=== PATIENT | male | born 1955 | race Caucasian/White ===

== ENCOUNTER 2022-04-19 13:02 | Emergency (ER) | payer BC, OTHER ==
[~2022-04-19] VITALS: Ht 182.9 cm; Wt 106.6 kg
[~2022-04-19 13:02] MED LIST: LISI20TA30 PO; LOVA20TA2 PO
[2022-04-19 13:05] VITALS: BP_SYST 104
[2022-04-19] MEDS ORDERED: EPINEPHRINE HCL/PF 1 MG/ML AMP IM ONE (13:30)
[2022-04-19] MEDS ORDERED: FAMOTIDINE 20 MG TABLET PO ONE (13:30)
[2022-04-19] MEDS ORDERED: predniSONE 20 MG TABLET PO ONE (13:30)
[2022-04-19] MEDS ORDERED: FAMOTIDINE 20 MG TABLET ONE (13:50)
[2022-04-19] MEDS ORDERED: EPIN0.3P3 IM (14:41)
[2022-04-19 15:27] VITALS: BP_SYST 118
== END 2022-04-19 15:27 | disposition home or self-care (01) ==
LOC: SED 13:02
DX: L50.0 Allergic urticaria (principal); I10 Essential (primary) hypertension; Z79.899 Other long term (current) drug therapy
CPT/HCPCS: 93005; 96372; 99283; J0171; J7512